=== PATIENT | male | born 1940 | race Caucasian/White ===

== ENCOUNTER 2021-03-18 11:43 | Outpatient (CLI) | payer MEDICARE, OTHER ==
[2021-03-18] VITALS (21 sets, daily range): BP systolic 84–156; BP diastolic 45–89
== END 2021-03-18 23:59 | disposition home or self-care (01) ==
LOC: CARD DIAG 11:43
PROVIDERS: ATTEND Internal Medicine Cardiovascular Disease
DX: R42 Dizziness and giddiness (principal)
CPT/HCPCS: 93660

== ENCOUNTER 2021-04-29 15:17 | Emergency (ER) | payer MEDICARE, OTHER ==
[~2021-04-29] VITALS: Ht 182.9 cm; Wt 84.1 kg
[2021-04-29 15:38] VITALS: BP 104/81
[2021-04-29 15:56] LABS: BASOPHILS # (AUTO) 0.1 X10'3 (0-0.2); BASOPHILS % (AUTO) 1.2 % (0-1); EOSINOPHILS # (AUTO) 0.5 X10'3 (0-0.9); EOSINOPHILS % (AUTO) 7.7 % (0-6); HEMOGLOBIN 12.3 g/dl (14.0-17.9); LYMPHOCYTES # (AUTO) 1.4 X10'3 (1.1-4.8); LYMPHOCYTES % (AUTO) 20.6 % (21-51); MEAN CORPUSCULAR HEMOGLOBIN 28.7 PG (27.0-31.0); MEAN CORPUSCULAR HGB CONC 33.4 g/dL (33.0-36.5); MEAN CORPUSCULAR VOLUME 86.1 FL (78-98); MEAN PLATELET VOLUME 7.2 FL (7.4-10.4); MONOCYTES # (AUTO) 0.6 X10'3 (0-0.9); MONOCYTES % (AUTO) 8.5 % (2-12); NEUTROPHILS # (AUTO) 4.3 X10'3 (1.8-7.7); PLATELET COUNT 185 X10'3 (140-440); RED CELL DISTRIBUTION WIDTH 14.7 % (11.5-14.5); WHITE BLOOD COUNT 6.9 X10'3 (4.5-11.0)
[2021-04-29 16:19] LABS: ALANINE AMINOTRANSFERASE 22 U/L (12-78); ALBUMIN 3.5 G/DL (3.4-5.0); ALBUMIN/GLOBULIN RATIO 1.1 (1.1-1.5); ALKALINE PHOSPHATASE 63 IU/L (46-116); AMYLASE 47 U/L (25-115); ANION GAP 11 (8-16); ASPARTATE AMINO TRANSFERASE 14 U/L (10-37); BILIRUBIN,TOTAL 0.2 MG/DL (0.1-1.0); BLOOD UREA NITROGEN 35 MG/DL (7-18); BUN/CREATININE RATIO 22.2 (5.4-32.0); CALCIUM 8.5 MG/DL (8.5-10.1); CHLORIDE 107 MMOL/L (99-107); CREATININE 1.58 MG/DL (0.60-1.10); GLUCOSE 103 MG/DL (70-104); LIPASE 83 U/L (73-393); POTASSIUM 4.5 MMOL/L (3.5-5.1); SODIUM 142 MMOL/L (135-145); TOTAL CARBON DIOXIDE 24.1 MMOL/L (24-32); TOTAL PROTEIN 6.8 G/DL (6.4-8.2); eGFR 43 ML/MIN
== END 2021-04-29 22:20 | disposition left against medical advice (07) ==
LOC: ER 15:18
DX: M79.89 Other specified soft tissue disorders (principal); Z53.21 Procedure and treatment not carried out due to patient leaving prior to being seen by health care provider
CPT/HCPCS: 36415; 80053; 82150; 83690; 85025; 99283

== ENCOUNTER 2022-02-16 07:52 | Day surgery (SDC) | payer MEDICARE, OTHER ==
[2022-02-15 12:37] LABS: BASOPHILS # (AUTO) 0.1 X10'3 (0-0.2); BASOPHILS % (AUTO) 1.2 % (0-1); EOSINOPHILS # (AUTO) 0.2 X10'3 (0-0.9); EOSINOPHILS % (AUTO) 2.6 % (0-6); HEMATOCRIT 38.9 % (42.0-52.0); HEMOGLOBIN 12.7 g/dl (14.0-17.9); LYMPHOCYTES # (AUTO) 1.5 X10'3 (1.1-4.8); LYMPHOCYTES % (AUTO) 20.8 % (21-51); MEAN CORPUSCULAR HEMOGLOBIN 28.2 PG (27.0-31.0); MEAN CORPUSCULAR HGB CONC 32.6 g/dL (33.0-36.5); MEAN CORPUSCULAR VOLUME 86.5 FL (78-98); MEAN PLATELET VOLUME 7.7 FL (7.4-10.4); MONOCYTES # (AUTO) 0.6 X10'3 (0-0.9); MONOCYTES % (AUTO) 8.5 % (2-12); NEUTROPHILS % (AUTO) 66.9 % (42-75); PLATELET COUNT 172 X10'3 (140-440); RED BLOOD COUNT 4.49 X10'6 (4.70-6.10); RED CELL DISTRIBUTION WIDTH 14.9 % (11.5-14.5); WHITE BLOOD COUNT 7.4 X10'3 (4.5-11.0)
[2022-02-15 12:47] LABS: APTT 26 SECONDS (22-32)
[2022-02-15 12:53] LABS: ANION GAP 11 (8-16); BLOOD UREA NITROGEN 45 MG/DL (7-18); CALCIUM 9.9 MG/DL (8.5-10.1); CHLORIDE 110 MMOL/L (99-107); CREATININE 2.14 MG/DL (0.60-1.10); GLUCOSE 116 MG/DL (70-104); POTASSIUM 4.6 MMOL/L (3.5-5.1); SODIUM 142 MMOL/L (135-145); TOTAL CARBON DIOXIDE 21.3 MMOL/L (24-32); eGFR 30 ML/MIN
[~2022-02-16] VITALS: Ht 182.9 cm; Wt 85.8 kg
[2022-02-16] VITALS (14 sets, daily range): BP systolic 111–139; BP diastolic 46–77
[2022-02-16] MEDS ORDERED: normal saline 1,000 ML IV SCH (08:20)
[2022-02-16] MEDS ORDERED: diphenhydrAMINE 25mg capsule PO PRN (08:20)
[2022-02-16] MEDS ORDERED: sodium bicarbonate (8.4%) inj. 150 ML in dextrose 5%-water 1,000 ML IV ONE (08:20)
[2022-02-16] MEDS ORDERED: acetylcysteine 200 MG/ml 4ml vial PO PRN (08:21)
[2022-02-16] MEDS ORDERED: LIDOcaine/PRILOcaine 5gm cream TP ONE (08:25)
[2022-02-16] MEDS ORDERED: verapamil 2.5 mg/ml inj IV ONE (08:27)
[2022-02-16] MEDS ORDERED: nitroGLYCERIN-Tridil 50MG/D5W 250 ML IV ONE (08:27)
[2022-02-16] MEDS ORDERED: midazolam 1 mg/ML 2ml injection ONE (08:28)
[2022-02-16] MEDS ORDERED: LIDOcaine 1% 30ml preserv. free vial ONE (08:28)
[2022-02-16] MEDS ORDERED: heparin 1,000unit/ml 10ml vial 10 ML ONE (08:28)
[2022-02-16] MEDS ORDERED: fentaNYL/PF 50MCG/1 ML 2ML syringe ONE (08:28)
[2022-02-16] MEDS ORDERED: iohexol 350MG/ML 100ml bottle IV ONE (08:30)
[2022-02-16] MEDS ORDERED: CHOL100046 PO (08:50)
[2022-02-16] MEDS ORDERED: MIDO5TAB4 PO (08:50)
[2022-02-16] MEDS ORDERED: TERA5CAP4 PO (08:50)
[2022-02-16] MEDS ORDERED: RIVA20TA PO (08:50)
[2022-02-16] MEDS ORDERED: LORA10TA7 PO (08:50)
[2022-02-16] MEDS ORDERED: CHOL10008 PO (08:50)
[2022-02-16] MEDS ORDERED: ROSU20TA31 PO (08:52)
== END 2022-02-16 17:50 | disposition home or self-care (01) ==
LOC: SSTAY O 07:52
PROVIDERS: ATTEND Internal Medicine Cardiovascular Disease
DX: R94.39 Abnormal result of other cardiovascular function study (principal); R07.89 Other chest pain; E78.5 Hyperlipidemia, unspecified; N18.9 Chronic kidney disease, unspecified; J84.9 Interstitial pulmonary disease, unspecified; N40.0 Benign prostatic hyperplasia without lower urinary tract symptoms; E55.9 Vitamin D deficiency, unspecified; M81.0 Age-related osteoporosis without current pathological fracture; I08.1 Rheumatic disorders of both mitral and tricuspid valves; Z96.653 Presence of artificial knee joint, bilateral; Z86.718 Personal history of other venous thrombosis and embolism; Z87.891 Personal history of nicotine dependence; Z80.49 Family history of malignant neoplasm of other genital organs; Z80.8 Family history of malignant neoplasm of other organs or systems
CPT/HCPCS: 36415; 76937; 80048; 85025; 85610; 85730; 93005; 93458; 99152; C1894; J1644; J2250; J3010; J3490; J7070; Q0163; 99153; A4620; A6258; C1769; Q9967